=== PATIENT | female | born 1975 | race Caucasian/White ===

== ENCOUNTER 2016-12-05 18:06 | Emergency (ER) | payer OTHER | END 2016-12-06 00:45 | disposition home or self-care (01) | LOC: ER1 18:06 | DX: Z53.21 Procedure and treatment not carried out due to patient leaving prior to being seen by health care provider (principal) ==

== ENCOUNTER 2020-08-07 19:37 | Emergency (ER) | payer OTHER ==
[2020-08-07 20:01] LABS: HEMOGLOBIN 13.9 gm/dl (12.3-15.3); RED BLOOD COUNT 4.67 M/UL (4.00-5.10); WHITE BLOOD COUNT 6.7 K/UL (4.5-11.0)
[2020-08-07 20:12] LABS: BUN/CREATININE RATIO 16 (0-10)
[2020-08-07] MEDS ORDERED: SENNA8.6 MG PO (21:34)
[2020-08-07] MEDS ORDERED: COLACE100 MG PO (21:34)
== END 2020-08-07 21:40 | disposition home or self-care (01) ==
LOC: ER1 19:37
PROVIDERS: Emergency Medicine
DX: K59.00 Constipation, unspecified (principal); R11.2 Nausea with vomiting, unspecified; J44.9 Chronic obstructive pulmonary disease, unspecified; F17.210 Nicotine dependence, cigarettes, uncomplicated; Z88.5 Allergy status to narcotic agent; Z87.19 Personal history of other diseases of the digestive system
CPT/HCPCS: 36415; 74018; 80053; 84703; 85025; 99284

== ENCOUNTER 2020-12-18 17:38 | Inpatient (IN) | payer OTHER ==
[~2020-12-18] VITALS: Ht 152.4 cm; Wt 95.8 kg
[~2020-12-18 17:38] MED LIST: COLACE100 MG PO; SENNA8.6 MG PO
[2020-12-18 18:16] LABS: HEMOGLOBIN 12.9 gm/dl (12.3-15.3); RED BLOOD COUNT 4.27 M/UL (4.00-5.10); WHITE BLOOD COUNT 18.4 K/UL (4.5-11.0)
[2020-12-18 18:34] LABS: BUN/CREATININE RATIO 14 (0-10)
[2020-12-18] MEDS ORDERED: VENTOLIN HFA 66.7 GM INH (23:50)
[2020-12-18] MEDS ORDERED: WELLBUTRIN XL300 M1 PO (23:50)
[2020-12-18] MEDS ORDERED: SUBOXONE 8 MG-1 EACH SL (23:51)
[2020-12-18] MEDS ORDERED: MOTRIN IB200 MG PO (23:52)
[2020-12-18] MEDS ORDERED: BUPRENORPHIN-N1 EACH SL (23:53)
[2020-12-18] MEDS ORDERED: ANTIBIOTIC (23:56)
[2020-12-19 06:09] LABS: WHITE BLOOD COUNT 15.3 K/UL (4.5-11.0)
[2020-12-19 06:10] LABS: RED BLOOD COUNT 3.69 M/UL (4.00-5.10)
[2020-12-20 06:14] LABS: BUN/CREATININE RATIO 22 (0-10)
[2020-12-20 10:06] LABS: ACINETOBACTER BAUMANNII Not Detected (Negative); CANDIDA ALBICANS Not Detected (Negative); CANDIDA KRUSEI Not Detected (Negative); CANDIDA TROPICALIS Not Detected (Negative); ENTEROCOCCUS Not Detected (Negative); ESCHERICHIA COLI Not Detected (Negative); HAEMOPHILUS INFLUENZAE DETECTED (Negative); KLEBSIELLA OXYTOCA Not Detected (Negative); KLEBSIELLA PNEUMONIAE Not Detected (Negative); KPC-CARBAPENEM-RESISTANCE GENE Not Detected (Negative); PROTEUS Not Detected (Negative); PSEUDOMONAS AERUGINOSA Not Detected (Negative); SERRATIA MARCESANS Not Detected (Negative); STAPHYLOCOCCUS Not Detected (Negative); STAPHYLOCOCCUS AUREUS Not Detected (Negative); STREP AGALACTIAE (GROUP B) Not Detected (Negative); STREP PYOGENES (GROUP A) Not Detected (Negative); STREPTOCOCCUS Not Detected (Negative); mecA (METHICILLIN RESIST GENE Not Detected (Negative); vanA/B (VANCOMYCIN RESIST GENE Not Detected (Negative)
[2020-12-21 04:57] LABS: HEMOGLOBIN 10.6 gm/dl (12.3-15.3); RED BLOOD COUNT 3.69 M/UL (4.00-5.10); WHITE BLOOD COUNT 15.7 K/UL (4.5-11.0)
[2020-12-21 05:11] LABS: BUN/CREATININE RATIO 22 (0-10)
[2020-12-22 05:45] LABS: HEMOGLOBIN 10.8 gm/dl (12.3-15.3); RED BLOOD COUNT 3.64 M/UL (4.00-5.10)
[2020-12-22 05:47] LABS: WHITE BLOOD COUNT 11.4 K/UL (4.5-11.0)
[2020-12-22 06:16] LABS: BUN/CREATININE RATIO 17 (0-10)
[2020-12-22] MEDS ORDERED: IPRAT-ALBUT 0.5-3 ML NEB (15:44)
[2020-12-22] MEDS ORDERED: VENTOLIN HFA 66.7 GM INH (15:44)
[2020-12-22] MEDS ORDERED: SYMBICORT 160-1 INHA INH (15:44)
[2020-12-22] MEDS ORDERED: CEFUROXIME500 MG PO (15:44)
== END 2020-12-22 16:41 | disposition home or self-care (01) | DRG 871 ==
LOC: ER1 17:38 → CDU 18:46 → MED SURG 4 18:46
PROVIDERS: Family Medicine; Internal Medicine; Physician Assistant; ADMIT Internal Medicine
DX: A41.9 Sepsis, unspecified organism (principal); J96.01 Acute respiratory failure with hypoxia; J44.1 Chronic obstructive pulmonary disease with (acute) exacerbation; Z68.41 Body mass index [BMI] 40.0-44.9, adult; R65.20 Severe sepsis without septic shock; E87.6 Hypokalemia; B96.3 Hemophilus influenzae [H. influenzae] as the cause of diseases classified elsewhere; E66.01 Morbid (severe) obesity due to excess calories; Z72.0 Tobacco use; Z88.8 Allergy status to other drugs, medicaments and biological substances
CPT/HCPCS: 0240U; 36415; 36600; 71045; 80048; 80053; 81001; 82550; 82553; 82803; 83605; 83735; 83880; 84100; 84484; 85025; 85610; 87040; 87077; 87086; 87150; 93005; 94640; 94645; 94760; 96372; 96374; 99283; J0456; J0696; J1650; J2920; J2930; J7030